=== PATIENT | male | born 1990 | race Caucasian/White ===

== ENCOUNTER → 2020-05-21 | Outpatient (CLI) | payer OTHER ==
[~2020-05-21] MED LIST: AMOXICILLIN500 M3 PO; BENTYL20 MG PO; FLAGYL500 MG PO; HYDROCODONE BIT1 T11 PO; MOTRIN800 MG PO
== END | disposition home or self-care (01) ==
LOC: COVID19 08:39
PROVIDERS: ATTEND Student in an Organized Health Care Education/Training Program
DX: Z20.828 Contact with and (suspected) exposure to other viral communicable diseases (principal)

== ENCOUNTER 2021-08-18 10:49 | Emergency (ER) | payer OTHER ==
[~2021-08-18] VITALS: Ht 185.4 cm; Wt 99.8 kg
[2021-08-18 10:56] VITALS: BP 137/78
[2021-08-18] MEDS ORDERED: Motrin,Rufen800 MG PO (12:50)
== END 2021-08-18 13:11 | disposition home or self-care (01) ==
LOC: ED 10:49
DX: S93.402A Sprain of unspecified ligament of left ankle, initial encounter (principal); W00.0XXA Fall on same level due to ice and snow, initial encounter; Y93.89 Activity, other specified; Y92.89 Other specified places as the place of occurrence of the external cause; Y99.8 Other external cause status